=== PATIENT | female | born 2000 | race Caucasian/White ===

== ENCOUNTER 2023-07-05 19:10 | Outpatient (CLI) | payer OTHER ==
[2023-07-05 20:12] LABS: Basophils % (A) 0 %; Eosinophils % (A) 0 %; HCT 35.5 % (34.0-46.0); HGB 11.9 gm/dL (11.4-16.0); Lymphocytes # (A) 0.5 k/uL (1.0-4.8); Lymphocytes % (A) 8 %; MCH 31.8 pg (25.0-35.0); MCHC 33.6 g/dL (31.0-37.0); MCV 94.6 fL (80.0-100.0); Mean Platelet Volume 8.2; Monocytes # (A) 0.4 k/uL (0-1.0); Monocytes % (A) 6 %; Neutrophils # (A) 5.5 k/uL (1.3-7.7); Neutrophils % (A) 84 %; Platelet Count 183 k/uL (150-450); RBC 3.75 m/uL (3.80-5.40); RDW 12.6 % (11.5-15.5); WBC 6.6 k/uL (3.8-10.6)
[2023-07-05 23:29] VITALS: BP 141/76; PULSE 122; RESP 16; TEMP 98.4
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
== END 2023-07-05 23:15 | disposition home or self-care (01) ==
LOC: FBPOP 19:10
PROVIDERS: ATTEND Obstetrics & Gynecology Obstetrics
DX: O26.893 Other specified pregnancy related conditions, third trimester (principal); G89.11 Acute pain due to trauma; Z3A.28 28 weeks gestation of pregnancy
CPT/HCPCS: 59025; 85025; 85384; 99213

== ENCOUNTER 2023-08-24 13:01 | Outpatient (CLI) | payer OTHER ==
[2023-08-24 15:37] VITALS: BP 149/86; PULSE 112; RESP 16; TEMP 97.4
== END 2023-08-24 14:45 ==
LOC: FBPOP 13:01
PROVIDERS: ATTEND Obstetrics & Gynecology
DX: O13.9 Gestational [pregnancy-induced] hypertension without significant proteinuria, unspecified trimester (principal); Z3A.36 36 weeks gestation of pregnancy
CPT/HCPCS: 59025; 99215

== ENCOUNTER → 2023-08-24 | Outpatient (CLI) | payer OTHER ==
[2023-08-24 13:58] LABS: HCT 36.8 % (34.0-46.0); HGB 12.6 gm/dL (11.4-16.0); MCH 31.2 pg (25.0-35.0); MCHC 34.2 g/dL (31.0-37.0); MCV 91.1 fL (80.0-100.0); Mean Platelet Volume 9.5; Platelet Count 192 k/uL (150-450); RBC 4.04 m/uL (3.80-5.40); RDW 12.3 % (11.5-15.5); WBC 6.4 k/uL (3.8-10.6)
[2023-08-24 14:05] LABS: ALT 13 U/L (4-34); AST 20 U/L (14-36); African American GFR (CKD) >90 (>60 ml/min/1.73 sqM); Blood Urea Nitrogen 3 mg/dL (7-17); Non-African American GFR(CKD) >90 (>60 ml/min/1.73 sqM); Uric Acid 4.1 mg/dL (3.7-7.4)
[2023-08-24 14:12] LABS: Creatinine,Urine Random 45.1 mg/dL; Protein/Creatinine Ratio,Urine 0.399
== END | disposition home or self-care (01) ==
LOC: LABWHC1 12:12
PROVIDERS: ATTEND Obstetrics & Gynecology
DX: Z00.00 Encounter for general adult medical examination without abnormal findings (principal); O13.9 Gestational [pregnancy-induced] hypertension without significant proteinuria, unspecified trimester; Z3A.00 Weeks of gestation of pregnancy not specified
CPT/HCPCS: 36415; 82565; 82570; 84156; 84450; 84460; 84520; 84550; 85027

== ENCOUNTER 2023-08-28 17:08 | Inpatient (IN) | payer OTHER ==
[2023-08-28 17:41] LABS: Appearance,Urine Cloudy (Clear); Bacteria,Urine Many /hpf; Bilirubin,Urine Negative (Negative); Blood,Urine Negative (Negative); Color,Urine Colorless; Glucose,Urine (UA) Negative (Negative); Ketones,Urine 1+ (Negative); Leukocyte Esterase,Urine Negative (Negative); Mucus,Urine Rare /hpf; Nitrite,Urine Negative (Negative); Protein,Urine Negative (Negative); RBC,Urine 1 /hpf (0-5); Specific Gravity,Urine 1.007 (1.001-1.035); Squamous Epithelial Cell,Urine 1 /hpf (0-4); Urobilinogen,Urine <2.0 mg/dL (<2.0); WBC,Urine 8 /hpf (0-5)
[2023-08-28] MEDS ORDERED: FAMOTIDINE 20 MG/2 ML VIAL IV STA (17:49)
[2023-08-28] MEDS ORDERED: ACETAMINOPHEN IV (For NPO) 1,000 MG in EMPTY BAG 1 BAG IVPB ONE (17:49)
[2023-08-28] MEDS: LACTATED RINGERS 1,000 ML IV SCH ×2 (18:02→21:02)
[2023-08-28 18:23] LABS: Basophils % (A) 0 %; Eosinophils % (A) 0 %; HCT 36.7 % (34.0-46.0); HGB 12.3 gm/dL (11.4-16.0); Lymphocytes # (A) 1.4 k/uL (1.0-4.8); Lymphocytes % (A) 18 %; MCH 30.5 pg (25.0-35.0); MCHC 33.4 g/dL (31.0-37.0); MCV 91.3 fL (80.0-100.0); Mean Platelet Volume 9.2; Monocytes # (A) 0.5 k/uL (0-1.0); Monocytes % (A) 6 %; Neutrophils # (A) 5.4 k/uL (1.3-7.7); Neutrophils % (A) 72 %; Platelet Count 191 k/uL (150-450); RBC 4.03 m/uL (3.80-5.40); RDW 12.3 % (11.5-15.5); WBC 7.5 k/uL (3.8-10.6)
[2023-08-28 18:33] LABS: AST 21 U/L (14-36); African American GFR (CKD) >90 (>60 ml/min/1.73 sqM); Blood Urea Nitrogen 3 mg/dL (7-17); LDH 152 U/L (120-246); Non-African American GFR(CKD) >90 (>60 ml/min/1.73 sqM); Uric Acid 3.9 mg/dL (3.7-7.4)
[2023-08-28 18:37] LABS: Creatinine,Urine Random 62.9 mg/dL; Protein/Creatinine Ratio,Urine 0.334
[2023-08-28] MEDS ORDERED: MAGNESIUM SULFATE-WATER PMX 4 GM in WATER FOR INJECTION 1 100ML.BAG IVPB ONE (18:39)
--- NOTE | 2023-08-28 18:47 | P.HPOB ---
History of Present Illness H&P Date: 08/28/23 Chief Complaint: Pre-eclampsia with severe features Ms. Sherman is a 22 year old at 36 weeks and 4 days with EDC of 09/21/2023 by 6 week US who presents to labor and delivery with severe-range blood pressures of 160s/100s on home blood pressure cuff today. She also complains of a headache for the past 4 days, for which she has not taken any medication for. She denies visual changes and right upper quadrant pain. A growth ultrasound of the fetus at 32 weeks estimated growth to be in the 82%ile. work-up: blood type B negative (s/p rhogam 06/29/23), antibody positive (anti-d after rhogam recently administered), rubella immune, VDRL non-reactive, HBsAg negative, HIV negative, HCV Ab negative, gonorrhea negative, chlamydia negative, 1 hour GTT within normal limits. Past Medical History History of Any Multi-Drug Resistant Organisms: None Reported Smoking Status: Never smoker Medications and Allergies Home Medications Medication Instructions Recorded Confirmed Type Vit No.179/Iron/Folic 1 each PO DAILY 07/05/23 08/28/23 History [ Tablet] Allergies Allergy/AdvReac Type Severity Reaction Status Date / Time No Known Allergies Allergy Verified 08/28/23 17:18 Exam Intake and Output 08/28/23 08/28/23 08/28/23 06:59 14:59 22:59 Other: Weight 83.915 kg Focused physical exam is performed. This is a healthy-appearing in no apparent distress. Breathing is non-labored. Abdomen is gravid and non-tender. Cervix is 1/80/-2. Membranes intact at this time. Extremities are non-tender and non-edematous. heart tones are category I and tocometer shows contractions every 2-5 minutes. Results Result Diagrams: 08/28/23 17:55 Abnormal Lab Results - Last 24 Hours (Table) 08/28/23 Range/Units 17:21 Urine Appearance Cloudy H (Clear) Urine Ketones 1+ H (Negative) Urine WBC 8 H (0-5) /hpf Urine Bacteria Many H (None) /hpf Urine Mucus Rare H (None) /hpf Assessment and Plan Assessment: 22 year old at 36 weeks and 4 day with pre-eclampsia with severe features Plan: 1. Pre-eclampsia with severe features. Start Magnesium Sulfate for seizure prophylaxis with 4 gram bolus and 2 gram maintenance dose. 2. Medical induction of labor. Will start pitocin titrated per protocol. 3. Patient to be kept NPO with maintenance IVF and strict Is and Os. Dispo: Anticipate vaginal delivery. Time with Patient: Less than 30
[2023-08-28] MEDS ORDERED: METHYLERGONOVINE 0.2 MG/ML 1 ML AMP IM PRN (18:49)
[2023-08-28] MEDS ORDERED: TERBUTALINE 1 MG/ML VIAL SQ PRN (18:49)
[2023-08-28] MEDS ORDERED: CARBOPROST TROMETHAMINE 250 MCG/ML 1 ML AMP IM PRN (18:49)
[2023-08-28] MEDS ORDERED: miSOPROStoL 200 MCG TAB PO PRN (18:49)
[2023-08-28] MEDS ORDERED: LIDOCAINE 0.5% (PF) 5 MG/ML (50 ML SDV) SQ PRN (18:49)
[2023-08-28] MEDS ORDERED: OXYTOCIN 10 UNIT/ML 1 ML VIAL IM PRN (18:49)
[2023-08-28] MEDS ORDERED: TRANEXAMIC 1,000 MG/100ML-NACL 1,000 MG in EMPTY BAG 1 BAG IV PRN (18:49)
[2023-08-28] MEDS ORDERED: NALBUPHINE 10 MG/ML (10 ML MDV) IV PRN (18:58)
[2023-08-28] MEDS: OXYTOCIN 30 UNITS/500 ML NS 30 UNIT in SALINE 1 500ML.BAG IV SCH (19:24)
[2023-08-28 19:38] LABS: ALT 14 U/L (4-34)
[2023-08-28] MEDS: MAGNESIUM SULFATE-WATER PMX 20 GM in WATER FOR INJECTION 1 500ML.BAG IV SCH (19:42)
[2023-08-28] MEDS ORDERED: hydrALAZINE HCL 20 MG/ML 1 ML VIAL IVP STA ×2 (20:09→20:54)
[2023-08-28] MEDS ORDERED: hydrALAZINE HCL 20 MG/ML 1 ML VIAL IM STA (20:46)
[2023-08-28] MEDS ORDERED: LABETALOL 5 MG/ML VIAL MDV IVP PRN ×2 (22:03)
[2023-08-28] MEDS ORDERED: hydrALAZINE HCL 20 MG/ML 1 ML VIAL IVP PRN (22:03)
[2023-08-28] MEDS: LABETALOL 5 MG/ML VIAL MDV IVP PRN (22:16)
[2023-08-29] MEDS ORDERED: LABETALOL 5 MG/ML VIAL MDV IVP STA (05:51)
[2023-08-29] MEDS: MAGNESIUM SULFATE-WATER PMX 20 GM in WATER FOR INJECTION 1 500ML.BAG IV SCH ×2 (06:06→15:35)
[2023-08-29] MEDS ORDERED: LABETALOL 200 MG TAB PO STA (07:57)
[2023-08-29] MEDS: LABETALOL 200 MG TAB PO SCH ×2 (13:07→20:59)
[2023-08-29] MEDS: LACTATED RINGERS 1,000 ML IV SCH ×2 (13:18→21:01)
[2023-08-29] MEDS: OXYTOCIN 30 UNITS/500 ML NS 30 UNIT in SALINE 1 500ML.BAG IV SCH (15:26)
[2023-08-29] MEDS ORDERED: ZOLPIDEM 5 MG TAB PO PRN (15:43)
[2023-08-29] MEDS ORDERED: diphenhydrAMINE 50 MG/ML 1 ML VIAL IVP PRN ×2 (15:43)
[2023-08-29] MEDS ORDERED: BENZOCAINE/MENTHOL SPRAY 1 GM/SPRAY AEROSOL TOPICAL PRN (15:43)
[2023-08-29] MEDS: LABETALOL 5 MG/ML VIAL MDV IVP PRN (15:43)
[2023-08-29] MEDS ORDERED: SIMETHICONE 80 MG CHEWABLE PO PRN (15:43)
[2023-08-29] MEDS ORDERED: Rhogam IMMUNE GLOBULIN 1,500 UNIT/1 ML IM ONE (15:43)
[2023-08-29] MEDS ORDERED: diphenhydrAMINE 25 MG CAP PO PRN (15:43)
[2023-08-29] MEDS ORDERED: IBUPROFEN 600 MG TAB PO PRN (15:43)
[2023-08-29] MEDS ORDERED: diphenhydrAMINE 50 MG CAP PO PRN (15:43)
[2023-08-29] MEDS ORDERED: LANOLIN CREAM 5 GM TUBE TOPICAL PRN (15:43)
[2023-08-29] MEDS ORDERED: HYDROCORTISONE 2.5% RECTAL CREAM 30 GM TUBE RECTAL PRN (15:43)
--- NOTE | 2023-08-29 15:43 | P.PROBDLV ---
Vaginal Delivery Note - . Vaginal Delivery Note: DATE OF SERVICE: 08/29/2023 PROCEDURE: Normal Vaginal Delivery ATTENDING: Dr. Sylvia Gandhi MD ESTIMATED BLOOD LOSS: 500 mL FINDINGS: VMI, Apgars 8/9. Weight 8 pounds and 0 ounces (3629 grams) PROCEDURE: Ms. Sherman is a 22 year old at 36 weeks and 5 days weeks presenting to labor and delivery for elevated home blood pressures and intractable headache. The patient was diagnosed with pre-eclampsia with severe features (severe features being blood pressures and headache). The had been previously uncomplicated. For further details, please review the admitting H&P. Pitocin was started and titrated per hospital protocol. AROM was undertaken at 648 revealing clear fluid. She received epidural anesthesia per her request. The patient was completely dilated at 1341. The patient pushed effectively. A viable male infant was delivered at 1509 without difficulty. One nuchal cord was reduced. The infant was placed on the maternal abdomen and bulb suctioned. The was noted to be spontaneously crying. Cord was clamped and cut after a 30-second delay. The was handed off to the pediatric team. Placenta was delivered whole with gentle cord traction at 1513. Oxytocin was started to facilitate uterine tone. Uterine fundus was found to be firm atonic and the patient was bleeding briskly. After performing a bimanual massage, the decision was made to give IM Methergine for post- hemorrhage. After administration of this medication, the bleeding was minimal and the fundus was firm below the umbilicus. Thorough examination of the cervix, vagina, periurethral area, and perineum revealed a small second degree laceration. The laceration was infiltrated with lidocaine and repaired with 2-0 Vicryl in the usual fashion. The patient is stable and allowed to begin the bonding process.
[2023-08-29] MEDS: SENNOSIDES-DOCUSATE SODIUM 1 EACH TAB PO SCH (21:01)
[2023-08-30] MEDS: LACTATED RINGERS 1,000 ML IV SCH ×2 (00:39→00:45)
[2023-08-30] MEDS: LABETALOL 200 MG TAB PO SCH ×4 (00:39→20:42)
[2023-08-30] MEDS: MAGNESIUM SULFATE-WATER PMX 20 GM in WATER FOR INJECTION 1 500ML.BAG IV SCH (00:45)
[2023-08-30 06:32] LABS: Basophils % (A) 0 %; Eosinophils % (A) 0 %; HCT 31.8 % (34.0-46.0); HGB 10.8 gm/dL (11.4-16.0); Lymphocytes # (A) 1.9 k/uL (1.0-4.8); Lymphocytes % (A) 16 %; MCH 31.1 pg (25.0-35.0); MCHC 33.9 g/dL (31.0-37.0); MCV 91.8 fL (80.0-100.0); Mean Platelet Volume 9.4; Monocytes # (A) 0.8 k/uL (0-1.0); Monocytes % (A) 7 %; Neutrophils # (A) 8.6 k/uL (1.3-7.7); Neutrophils % (A) 74 %; Platelet Count 231 k/uL (150-450); RBC 3.46 m/uL (3.80-5.40); RDW 12.6 % (11.5-15.5); WBC 11.7 k/uL (3.8-10.6)
--- NOTE | 2023-08-30 07:54 | P.PNOBGVD ---
Subjective - Subjective Principal diagnosis: s/p vaginal delivery complicated by pre-eclampsia with severe features Interval history: The patient is doing well this morning and had no acute events overnight. She has no complaints this morning. She reports minimal lochia, passing flatus, voiding without difficulty, ambulating, and eating/drinking without nausea or vomiting. She is her infant without difficulty. She denies chest pain, shortness of breathing, fevers, or chills overnight. She denies pain or swelling in the legs. She is finishing her post- magnesium sulfate this morning. She has a headache, but denies visual changes or right upper quadrant pain. Blood pressures overnight have been low normotensive. Patient reports: Reports appetite normal, Reports voiding normally, Reports pain well controlled, Reports ambulating normally Linn: doing well, nursing well Objective - Latest Vital Signs Latest vital signs: Vital Signs Temp Pulse Pulse Resp BP Pulse Ox 08/30/23 07:00 92 14 109/69 97 08/30/23 06:00 105 H 16 131/90 98 08/30/23 05:00 107 H 14 106/65 99 08/30/23 04:00 104 H 14 99/61 97 08/30/23 03:00 104 H 16 104/59 97 08/30/23 02:00 14 08/30/23 01:00 16 118/75 98 08/30/23 00:00 97.8 F 106 H 14 114/62 98 08/29/23 23:00 108 H 14 113/60 98 08/29/23 22:00 108 H 14 122/64 98 08/29/23 21:00 121 H 16 135/92 100 08/29/23 20:00 98.5 F 114 H 16 131/86 97 08/29/23 18:25 110 H 16 159/104 08/29/23 17:30 98.1 F 108 H 16 161/106 08/29/23 16:55 100 16 151/99 08/29/23 16:25 102 H 16 150/96 08/29/23 16:10 100 16 146/98 08/29/23 16:00 102 H 16 144/98 08/29/23 15:45 103 H 16 146/99 08/29/23 15:30 98.0 F 108 H 16 158/104 08/29/23 08:49 97.2 F L 88 16 142/94 98 Intake and Output 08/29/23 08/30/23 08/30/23 22:59 06:59 14:59 Intake Total 839.234 458.333 Output Total 1506 1000 Balance -666.766 -541.667 Intake: Intake, IV Titration 839.234 458.333 Amount Lactated Ringers 1,000 ml 100 @ 75 mls/hr IV .[id number] [facility] Rx#:[id number] Magnesium Sulfate-Water 474.167 458.333 Pmx 20 gm In Water For Injection 1 500ml.bag @ 2 GM/HR 50 mls/hr IV .Q10H [facility] Rx#:[id number] Magnesium Sulfate-Water 75 Pmx 4 gm In Water For Injection 1 100ml.bag @ 300 mls/hr IVPB ONCE ONE Rx#:[id number] Oxytocin 30 Units/500 ml 40.067 Ns 30 unit In Saline 1 500ml.bag @ Per Protocol IV .Q0M [facility] Rx#:[id number] Tranexamic 1,000 mg/100Ml 150 -NaCl 1,000 mg In Empty Bag 1 bag @ 600 mls/hr IV Q30M PRN Rx#:[id number] Output: Urine 1450 1000 Uretheral (Martinez) 150 Estimated Blood Loss 56 Other: # Voids 1 - Exam Extremities: Present: normal Abdomen: Present: normal appearance, soft Uterus: Present: normal, firm - Labs Labs: Abnormal Lab Results - Last 24 Hours (Table) 08/30/23 Range/Units 06:13 WBC 11.7 H (3.8-10.6) k/uL RBC 3.46 L (3.80-5.40) m/uL Hgb 10.8 L (11.4-16.0) gm/dL Hct 31.8 L (34.0-46.0) % Neutrophils # 8.6 H (1.3-7.7) k/uL Assessment and Plan Assessment: 22 year old PPD#1 s/p normal vaginal delivery after medical induction of labor for pre-eclampsia with severe features Plan: 1. . Patient meeting all milestones appropriately. 2. Pre-eclampsia with severe features. Finishing Mag Sulfate this AM. Labetalol 200 TID started yesterday > will decrease to BID given low pressures overnight. Continue to monitor BPs. 3. Viable male . Consented for circumcision today. Dispo: Anticipate discharge home tomorrow.
[2023-08-30] MEDS: SENNOSIDES-DOCUSATE SODIUM 1 EACH TAB PO SCH ×2 (08:03→20:42)
[2023-08-30] MEDS: ACETAMINOPHEN TAB 325 MG TAB PO PRN ×2 (08:03→20:42)
[2023-08-31] MEDS: LABETALOL 200 MG TAB PO SCH (08:12)
[2023-08-31] MEDS: SENNOSIDES-DOCUSATE SODIUM 1 EACH TAB PO SCH (08:12)
[2023-08-31 08:54] VITALS: BP 139/88; PULSE 66; RESP 18; TEMP 97.1
--- NOTE | 2023-08-31 09:39 | P.DS ---
Providers Date of admission: 08/28/23 18:42 Expected date of discharge: 08/31/23 Attending physician: Sylvia Gandhi MD Primary care physician: Stated None - Discharge Diagnosis(es) (1) Normal spontaneous vaginal delivery Current Visit: Yes Status: Acute (2) Severe preeclampsia Current Visit: Yes Status: Acute Hospital Course: The patient is a 22-year-old 1 para 0 admitted at 36-4/7 as established by a 6 week ultrasound. She is admitted for induction of labor secondary to preeclampsia was severe features with significantly elevated blood pressures and headache present. The remaining laboratory work was within normal limits. On labor and delivery, she had Pitocin started and underwent artificial rupture of membranes. She had magnesium sulfate prophylaxis started for seizures. She progressed through labor and had an epidural catheter placed for analgesia. She ultimately progressed to complete and then pushed to a normal spontaneous vaginal delivery of a viable 8 lbs. 0 oz. baby boy with Apgars of 8 at 1 minute and 9 at 5 minutes. Her course was unremarkable. She did remain on magnesium sulfate for 24 hours and had moderate diuresis. Off of magnesium sulfate and followed for another 24 hours, her blood pressures remained in the stable range without the need for antihypertensive therapy. She was deemed stable for discharge on day #2 was discharged home to follow-up in the office in 6 weeks routinely. Discharge instructions included calling for any significantly increased bleeding or foul-smelling lochia, significantly increased fever abdominal pain, perineal complaints, breast complaints, signs or symptoms of preeclampsia to include increasing headache, scotomata, edema, or anything also concerned her. She is additionally instructed to have nothing in the vagina for at least 6 weeks time to include intercourse. She understood her instructions and agrees to follow up as noted above. Discharge medications included continued vitamins as she has opted to breast-feed. She was otherwise use [id number] analgesic pain medications. Maternal blood type is B- and cord blood was sent for evaluation of the need for RhoGAM prior to discharge. Rubella status is immune. Procedures: #1. Pitocin induction #2. Artificial rupture of membranes #3. Magnesium sulfate seizure prophylaxis #4. Normal spontaneous vaginal delivery #5. Repair of perineal laceration Patient Condition at Discharge: Stable Plan - Discharge Summary New Discharge Prescriptions: No Action Vit No.179/Iron/Folic [ Tablet] 1 each PO DAILY Discharge Medication List Vit No.179/Iron/Folic [ Tablet] 1 each PO DAILY 07/05/23 [History] Follow up Appointment(s)/Referral(s): Sylvia Gandhi MD [STAFF PHYSICIAN] - 6 Weeks Discharge Disposition: HOME SELF-CARE
[2023-08-31] MEDS: ACETAMINOPHEN TAB 325 MG TAB PO PRN (10:23)
== END 2023-08-31 12:20 | disposition home or self-care (01) | DRG 807 ==
LOC: FBPOP 17:08 → 4FBP 18:42
PROVIDERS: ADMIT Obstetrics & Gynecology; ATTEND Obstetrics & Gynecology
PROC: 3E033VJ Introduction of Other Hormone into Peripheral Vein, Percutaneous Approach (ICD-10-PCS; principal; 2023-08-28)
PROC: 0KQM0ZZ Repair Perineum Muscle, Open Approach (ICD-10-PCS; 2023-08-29)
PROC: 10E0XZZ Delivery of Products of Conception, External Approach (ICD-10-PCS; 2023-08-29)
PROC: 10907ZC Drainage of Amniotic Fluid, Therapeutic from Products of Conception, Via Natural or Artificial Opening (ICD-10-PCS; 2023-08-29)
PROC: 3E0234Z Introduction of Serum, Toxoid and Vaccine into Muscle, Percutaneous Approach (ICD-10-PCS; 2023-08-30)
DX: O14.14 Severe pre-eclampsia complicating childbirth (principal); O26.893 Other specified pregnancy related conditions, third trimester; Z67.21 Type B blood, Rh negative; O72.1 Other immediate postpartum hemorrhage; O70.1 Second degree perineal laceration during delivery; O69.81X0 Labor and delivery complicated by cord around neck, without compression, not applicable or unspecified; Z3A.36 36 weeks gestation of pregnancy; Z37.0 Single live birth
CPT/HCPCS: 59025; 81001; 82565; 82570; 83615; 84156; 84450; 84460; 84520; 84550; 85025; 85461; 86850; 86870; 86880; 86900; 86901; 96361; 96367; 96374; 99215

== ENCOUNTER 2025-02-10 18:35 | Outpatient (CLI) | payer OTHER ==
[2025-02-10] MEDS: ACETAMINOPHEN IV (For NPO) 1,000 MG in EMPTY BAG 1 BAG IVPB ONE (19:09)
[2025-02-10] MEDS: LACTATED RINGERS 1,000 ML IV ONE (19:09)
[2025-02-10] MEDS: ONDANSETRON 4 MG/2 ML VIAL IVP STA (19:09)
[2025-02-10 20:37] LABS: Appearance,Urine Clear (Clear); Bacteria,Urine Rare /hpf; Bilirubin,Urine Negative (Negative); Blood,Urine Small (Negative); Color,Urine Yellow; Glucose,Urine (UA) Negative (Negative); Ketones,Urine 3+ (Negative); Leukocyte Esterase,Urine Negative (Negative); Mucus,Urine Rare /hpf; Nitrite,Urine Negative (Negative); Protein,Urine Negative (Negative); RBC,Urine 9 /hpf (0-5); Specific Gravity,Urine 1.015 (1.001-1.035); Squamous Epithelial Cell,Urine 1 /hpf (0-4); Urobilinogen,Urine <2.0 mg/dL (<2.0); WBC,Urine 3 /hpf (0-5)
[2025-02-10 21:59] VITALS: BP 111/69; PULSE 88; RESP 18; TEMP 98.2
--- NOTE | 2025-02-28 10:02 | P.MSEPDOC ---
Presenting Problems - Arrival Data Date of Arrival on Unit: 02/10/25 Time of Arrival on Unit: 18:35 Mode of Transport: Ambulatory - Complaint OB-Reason for Admission/Chief Complaint: Pain, Signs/Symptoms UTI Comment: urinary symptoms, R flank pain Medical History - Information : 2 Para: 1 Term: 1 : 0 Abortions: Spontaneous or Elective: 0 Number of Living Children: 0 - Gestational Age Gestational Age by LEBRON (wks/days): 22 Weeks and 6 Days Review of Systems - Review of Systems Constitutional: No problems Breast: No problems ENT: No problems Cardiovascular: No problems Respiratory: No problems Gastrointestinal: No problems Genitourinary: Increased frequency Musculoskeletal: No problems Neurological: No problems Skin: No problems Vital Signs - Temperature Temperature: 98.2 F Temperature Source: Oral - Pulse Pulse Oximetery Pulse Rate: 88 Pulse Assessment Method: Pulse Oximetry - Respirations Respiratory Rate: 18 Oxygen Delivery Method: Room Air O2 Sat by Pulse Oximetry: 96 - Blood Pressure Left Arm Blood Pressure: 111/69 Blood Pressure Mean: 83 Blood Pressure Source: Automatic Cuff Medical Screen Scoring - Assessment - Baby A Baseline FHR: 160 Physician Notification - Physician Notified Physician Notified Date: 02/10/25 Physician Notified Time: 20:46 Physician: Chiqui Saez New Order Received: Yes - Notification Comment Comment: Dr. Saez called, report given on maternal c/o urinary sx, R flank pain and vomitting today, and occassional cramping. FHT was WNL via doppler and vitals are all now WNL. UA shows no signs of UTI, 3+ketones, small blood, and 9RBCs. Pt also took AZO and monistat earlier today. Orders for 1L more of LR, and discharge home. Pt is to be educated on possible kidney stone, increasing hydration, BRAT diet, stopping AZO and monistat, and f/u this week. Maternal Triage Index - Maternal Triage Index Presenting for scheduled procedure w/no complaint: No - Stat/Priority 1 Stat Priority 1: No - Urgent/Priority 2 Urgent Priority 2: No - Prompt/Priority 3 Prompt Priority 3: No - Non-Urgent/Priority 4 Non-Urgent Priority 4: Yes Criteria Met for Priority 4: 22 6/7wks, urinary symptoms, R flank pain, N/V Disposition - Disposition OB Disposition: Discharge to home Discharge Date: 02/10/25 Discharge Time: 21:51 I agree with the RN Medical Screening Exam: Yes Case reviewed; plan agreed upon as documented in EMR&OBIX.: Yes Diagnosis: RELATED CONDITIONS, UNSPECIFIED, SECOND TRIMESTER
== END 2025-02-10 21:51 | disposition home or self-care (01) ==
LOC: FBPOP 18:35
PROVIDERS: ATTEND Obstetrics & Gynecology Obstetrics
DX: O23.42 Unspecified infection of urinary tract in pregnancy, second trimester (principal); N39.0 Urinary tract infection, site not specified; Z3A.22 22 weeks gestation of pregnancy
CPT/HCPCS: 99214; 96361; 96365; 96375; 81001; J2405; J0131; 96360